=== PATIENT | male | born 1990 ===

== ENCOUNTER 2016-09-27 17:18 | Emergency (ER) | payer OTHER ==
[2016-09-27 17:40] VITALS: BP 117/78; TEMP 98.9
[2016-09-27] MEDS ORDERED: Amoxicillin-Clav 875-125 mg Tab PO STA (18:26)
--- NOTE | 2016-09-27 18:31 | C.PDOC ---
History Of Present Illness 26 yr old male w/PMHx of rios ds, presents to the ER with complaints of sore throat, associated with nasal drip, dry cough for the past 1 week. Patient reports he recently came back from [place]. Since yesterday, cough worsen and now associated with SOB. Patient requesting treatment for possible Bronchitis. Otherwise, Patient denies high fever, chills, headache, dizziness, neck pain, drooling, dysphagia, dyspnea, CP, wheezing, sputum production, abd. pain, nausea , vomiting, diarrhea, back pain. Ambulate to Ed for evaluation, not n any apparent distress. Time Seen by Provider: 09/27/16 17:44 Chief Complaint (Nursing): Cough, Cold, Congestion History Per: Patient History/Exam Limitations: no limitations Onset/Duration Of Symptoms: Days (1 week) Past Medical History Reviewed: Historical Data, Nursing Documentation, Vital Signs Vital Signs: Last Vital Signs Temp 98.9 F 09/27/16 17:36 Pulse 104 H 09/27/16 18:51 Resp 20 09/27/16 18:51 BP 117/78 09/27/16 17:36 Pulse Ox 99 09/27/16 18:51 Family History: States: No Known Family Hx - Social History Hx Alcohol Use: Yes Hx Substance Use: No - Immunization History Hx Tetanus Toxoid Vaccination: Yes Hx Influenza Vaccination: No Hx Pneumococcal Vaccination: No Review Of Systems Except As Marked, All Systems Reviewed And Found Negative. Constitutional: Negative for: Fever, Chills ENT: Positive for: Nose Discharge (Nasal drip), Throat Pain (Sore throat ) Cardiovascular: Positive for: Other ((+) Chest tightness) Respiratory: Positive for: Shortness of Breath Gastrointestinal: Negative for: Nausea, Vomiting, Abdominal Pain, Diarrhea Neurological: Negative for: Weakness, Numbness, Headache Physical Exam - Physical Exam Appears: Well, Non-toxic, No Acute Distress Skin: Normal Color, Warm, Dry, No Rash Eye(s): bilateral: PERRL Nose: Discharge Oral Mucosa: Moist, No Drooling, No Trismus Tongue: Normal Appearing Lips: Normal Appearing Throat: Erythema (B/L pharyngeal), Exudate (B/L tonsillar), No Drooling, Other ( B/L tonsillar enlargement) Neck: Trachea Midline, Supple Cardiovascular: Rhythm Regular Respiratory: No Decreased Breath Sounds, No Accessory Muscle Use, No Stridor, No Wheezing Gastrointestinal/Abdominal: Soft, No Tenderness Extremity: No Pedal Edema Neurological/Psych: Oriented x3, Normal Speech ED Course And Treatment O2 Sat by Pulse Oximetry: 98 Pulse Ox Interpretation: Normal - Radiology CXR: Interpreted by Me, Viewed By Me CXR Interpretation: Yes: No Acute Disease Progress Note: On re-eavluation, pt is afebrile, hemodynamicaly stable. Non- toxic. Tolerate Po well in ED. PulsEOx 98% RA. ENT: exam c/w acute pharyngitis. neck: (-) meningeal sign. Lungs: CTA B/L, BS equal B/L. Abd: benign. CXR (-) acute abnormalities. Pt advised. ref. to F/u [facility] PMD in 1-2 days for re-eval. return to ED at any time if any worsening or new changes. Medical Decision Making Medical Decision Making: PLAN: * CXR * Rapid Strep * Augmentin PO * Prednisone PO Disposition Counseled Patient/Family Regarding: Studies Performed, Diagnosis, Need For Followup, Rx Given - Disposition Referrals: [facility] [Outside] Disposition: HOME/ ROUTINE Disposition Time: 18:30 Condition: STABLE Additional Instructions: Take medication as prescribed Encourage fluids Follow up with PMD in 2-3 days for re-evaluation. Return to Ed if any worsening or new changes. 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 - Scribe Statement The provider has reviewed the documentation as recorded by the Scribe Yara Jaramillo All medical record entries made by the Scribe were at my direction and personally dictated by me. I have reviewed the chart and agree that the record accurately reflects my personal performance of the history, physical exam, medical decision making, and the department course for this patient. I have also personally directed, reviewed, and agree with the discharge instructions and disposition.
[2016-09-27] MEDS ORDERED: Amoxicillin-Clav 875-125 mg Tab PO ONE (18:43)
[2016-09-27 18:52] VITALS: PULSE 104; RESP 20
--- NOTE | 2016-09-28 07:26 | RAD ---
HISTORY: Cough COMPARISON: No prior. TECHNIQUE: Chest PA and lateral FINDINGS: LUNGS: No active pulmonary disease. PLEURA: No significant pleural effusion identified. No pneumothorax apparent. CARDIOVASCULAR: Normal. OSSEOUS STRUCTURES: No significant abnormalities. VISUALIZED UPPER ABDOMEN: Normal. OTHER FINDINGS: None. IMPRESSION: No active disease.
[2016-09-29 07:41] VITALS: O2SAT 98
== END 2016-09-27 18:52 | disposition home or self-care (01) ==
LOC: C.ER 17:18
DX: J02.9 Acute pharyngitis, unspecified (principal)